=== PATIENT | female | born 1970 | race Caucasian/White ===

== ENCOUNTER 2018-12-06 17:06 | Emergency (ER) | payer MEDICAID ==
[2018-12-06 17:23] VITALS: BP 120/98
--- NOTE | 2018-12-06 18:16 | ER Document Report ---
HPI - HPI Time Seen by Provider: 12/06/18 18:03 Pain Level: 2 Context: Patient is a 48-year-old female who presents to the emergency department with a chief complaint of upper respiratory symptoms. She has complaints of runny nose, sore throat, and a raw bottom. She states that she has history of colitis, which is not giving her any abdominal pain, but she states that she has rawness to her bottom. Past medical history includes hypothyroidism, COPD, asthma, hyperlipidemia, bipolar disorder. - EENT EENT: REPORTS: Sore Throat, Nasal Drainage-Clear, Congestion. DENIES: Ear Pain, Nasal Drainage-Purulent - NEURO Neurology: DENIES: Headache, Weakness - CARDIOVASCULAR Cardiovascular: DENIES: Chest pain - RESPIRATORY Respiratory: REPORTS: Coughing. DENIES: Trouble Breathing - GASTROINTESTINAL Gastrointestinal: DENIES: Abdominal Pain, Nausea, Patient vomiting, Diarrhea - REPRODUCTIVE Reproductive: DENIES: : - MUSCULOSKELETAL Musculoskeletal: DENIES: Extremity pain - DERM Skin Color: Normal Skin Problems: Rash - buttocks Past Medical History - General Information source: Patient - Social History Smoking Status: Current Every Day Smoker Frequency of alcohol use: None Drug Abuse: None Family History: Reviewed & Not Pertinent Patient has suicidal ideation: No Patient has homicidal ideation: No Pulmonary Medical History: Reports: Hx Asthma, Hx COPD Renal/ Medical History: Denies: Hx Peritoneal Dialysis GI Medical History: Reports: Hx Gastroesophageal Reflux Disease Psychiatric Medical History: Reports: Hx Bipolar Disorder Past Surgical History: Reports: Hx Gynecologic Surgery - uterus ablation, Hx Orthopedic Surgery - left knee Vertical Provider Document - CONSTITUTIONAL Agree With Documented VS: Yes Exam Limitations: No Limitations General Appearance: No Apparent Distress - INFECTION CONTROL TRAVEL OUTSIDE OF THE [place] IN LAST 30 DAYS: No - HEENT HEENT: Atraumatic, Normocephalic, PERRLA, Pharyngeal Tenderness, Pharyngeal Erythema. negative: Pharyngeal Exudate, Tympanic Membrane Red, Tympanic Membrane Bulging - NECK Neck: Normal Inspection, Supple. negative: Lymphadenopathy-Left, Lymphadenopathy-Right - RESPIRATORY Respiratory: Breath Sounds Normal, No Respiratory Distress - CARDIOVASCULAR Cardiovascular: Regular Rate, Regular Rhythm Pulses: Normal: Radial - MUSCULOSKELETAL/EXTREMETIES Musculoskeletal/Extremeties: FROM - NEURO Level of Consciousness: Awake, Alert, Appropriate Motor/Sensory: No Motor Deficit, No Sensory Deficit - DERM Integumentary: Warm, Dry, Rash - Buttock area Course - Re-evaluation Re-evalutation: 12/06/18 18:21 Patient will be started on happy hiney cream. I will start her also on Singulair to help with her congestion. Very low suspicion for pneumonia, as patient has had her upper respiratory symptoms only for the past few days. Patient is from out of town and when she returns to her home, she will follow-up with her primary care provider. Follow-up precautions were given. Verbal discharge instructions were given to the patient. They verbalized und erstanding. They are stable for discharge. - Vital Signs Vital signs: Temp Pulse Resp BP Pulse Ox 98.4 F 90 16 120/98 H 99 12/06/18 17:21 12/06/18 17:21 12/06/18 17:21 12/06/18 17:21 12/06/18 17:21 Discharge - Discharge Clinical Impression: Rhinorrhea, Seasonal allergies, Sore throat Condition: Stable Disposition: HOME, SELF-CARE Additional Instructions: You were seen today in the emergency department for a runny nose, sore throat, and a rash. You are being started on Singulair to help with the drainage. You can take this with your cetirizine. Please continue breathing treatments that you have at home. You are also being sent home with having high knee pain. Apply to your buttocks with each toilet visit. Please follow-up with your primary care at home. Prescriptions: Montelukast Sodium [Singulair 10 mg Tablet] 10 mg PO QHS #30 tablet Miscellaneous Medication [Happy Hiney Cream] 1 applic TOP ASDIR PRN #60 gm PRN Reason:
== END 2018-12-06 18:18 | disposition home or self-care (01) ==
LOC: ER 17:06
DX: J02.9 Acute pharyngitis, unspecified (principal); J34.89 Other specified disorders of nose and nasal sinuses; J30.2 Other seasonal allergic rhinitis; R21 Rash and other nonspecific skin eruption; F17.200 Nicotine dependence, unspecified, uncomplicated; J44.9 Chronic obstructive pulmonary disease, unspecified; E78.2 Mixed hyperlipidemia
CPT/HCPCS: 99282